=== PATIENT | male | born 1995 | race Caucasian/White ===

== ENCOUNTER 2022-08-16 08:12 | Inpatient (IN) | payer MEDICAID ==
[~2022-08-16] VITALS: Ht 182.9 cm; Wt 89.8 kg
[2022-08-16 09:30] LABS: BASOPHILS % 2.3 % (0.0-2.0); EOSINOPHILS % 2.7 % (0.0-5.0); HEMATOCRIT. 25.3 % (42.0-52.0); HEMOGLOBIN. 7.6 g/dL (14.0-18.0); LYMPHOCYTES % 27.6 % (20.0-50.0); MEAN CORPUSCULAR VOLUME 63.3 fL (80.0-94.0); MEAN PLATELET VOLUME 7.9 fl (7.4-10.4); MONOCYTES % 10.5 % (2.0-8.0); NEUTROPHILS % 56.9 % (40.0-76.0); PLATELET 374 x1000/uL (130-400); RED CELL DISTRIBUTION WIDTH 18.6 % (11.6-14.6)
[2022-08-16 09:38] LABS: CHLORIDE 108 mEq/L (98-107)
[2022-08-16 09:42] LABS: INR 1.1; PROTHROMBIN TIME 11.7 sec (9.6-11.0)
[2022-08-16] MEDS ORDERED: DIATR MEGLU/DIATRIZOATE SOLN 30ML ONE (10:14)
[2022-08-16] MEDS ORDERED: IOHEXOL-300 100 ML BOTTLE ONE (10:15)
[2022-08-16 10:35] LABS: PLATELET ESTIMATE NORMAL
[2022-08-16] MEDS ORDERED: ONDANSETRON HCL 4MG/2ML INJ IV PRN (12:15)
[2022-08-16] MEDS: DEXT 5%/0.45% NACL 1000ML 1,000 ML IV SCH ×2 (13:00→22:36)
[2022-08-16 16:40] LABS: TOTAL IRON BINDING CAPACITY 457 ug/dL (250-450)
[2022-08-16 17:29] LABS: VITAMIN B12 SERUM 703 pg/mL (211-911)
[2022-08-16 20:30] VITALS: BP 119/51
[2022-08-16 20:36] LABS: FERRITIN < 5 ng/mL (22-322)
[2022-08-16 21:00] VITALS: BP 129/68
[2022-08-16] MEDS: PANTOPRAZOLE SODIUM 40 MG/VIAL IV SCH (22:36)
[2022-08-17] VITALS (7 sets, daily range): BP systolic 99–129; BP diastolic 45–75
[2022-08-17 06:57] LABS: BASOPHILS % 1.2 % (0.0-2.0); EOSINOPHILS % 2.3 % (0.0-5.0); HEMATOCRIT. 25.1 % (42.0-52.0); HEMOGLOBIN. 7.5 g/dL (14.0-18.0); LYMPHOCYTES % 29.3 % (20.0-50.0); MEAN CORPUSCULAR HEMOGLOBIN 18.9 pg (28.0-32.0); MEAN CORPUSCULAR VOLUME 63.2 fL (80.0-94.0); MEAN PLATELET VOLUME 8.1 fl (7.4-10.4); MONOCYTES % 9.8 % (2.0-8.0); NEUTROPHILS % 57.4 % (40.0-76.0); PLATELET 371 x1000/uL (130-400); RED BLOOD CELL COUNT 3.97 mill/uL (4.7-6.1); RED CELL DISTRIBUTION WIDTH 18.6 % (11.6-14.6)
[2022-08-17] MEDS ORDERED: NALOXONE HCL 0.4MG/ML VIAL IV PRN (07:00)
[2022-08-17] MEDS ORDERED: MORPHINE SULFATE 2 MG/ML CPJ (NOT FOR IM USE) IV PRN (07:00)
[2022-08-17] MEDS ORDERED: ONDANSETRON HCL 4MG/2ML INJ IV PRN ×2 (07:45→09:45)
[2022-08-17 08:02] LABS: CHLORIDE 109 mEq/L (98-107)
[2022-08-17] MEDS ORDERED: BUPIVACAINE HCL/PF 0.5% (5MG/ML) 30ML ONE (08:52)
[2022-08-17] MEDS ORDERED: PANTOPRAZOLE SODIUM 40 MG/VIAL IV SCH (09:00)
[2022-08-17] MEDS: ENOXAPARIN 40MG/0.4ML SYR SUBCUT SCH (09:00)
[2022-08-17] MEDS: PANTOPRAZOLE SODIUM 40 MG/VIAL IV SCH ×2 (09:00→20:29)
[2022-08-17] MEDS ORDERED: FENTANYL CITRATE/PF 50MCG/ML 2ML VIAL ONE (09:01)
[2022-08-17] MEDS ORDERED: MIDAZOLAM HCL 2 MG/2 ML VIAL ONE (09:02)
[2022-08-17] MEDS ORDERED: ONDANSETRON HCL 4MG/2ML INJ ONE (09:06)
[2022-08-17] MEDS ORDERED: DEXAMETHASONE 4MG/ML 1ML VIAL ONE (09:06)
[2022-08-17] MEDS ORDERED: ROCURONIUM BROMIDE 10MG/ML VIAL 5ML IV ONE (09:06)
[2022-08-17] MEDS ORDERED: NEOSTIGMINE METHYLSULFATE 1MG/ML 10 ML VIAL ONE (09:06)
[2022-08-17] MEDS ORDERED: PROPOFOL 200MG/20ML VIAL IV ONE (09:06)
[2022-08-17] MEDS ORDERED: GLYCOPYRROLATE 0.2 MG/ML 2ML VIAL ONE ×2 (09:07)
[2022-08-17] MEDS ORDERED: HYDROMORPHONE HCL/PF 2MG/ML CPJ ONE ×2 (09:19→09:50)
[2022-08-17] MEDS ORDERED: LABETALOL 5MG/ML SYR 20 MG/4 ML SYRINGE IV PRN (09:45)
[2022-08-17] MEDS ORDERED: MEPERIDINE HCL/PF 25MG/ML CPJ IV PRN (09:45)
[2022-08-17] MEDS ORDERED: SKIN ADHESIVE 0.7 GM EA TOP ONE (09:54)
[2022-08-17] MEDS ORDERED: MEPERIDINE HCL/PF 25MG/ML CPJ IM PRN (10:15)
[2022-08-17] MEDS: HYDROMORPHONE HCL/PF 2MG/ML CPJ IV PRN ×2 (10:21→10:32)
[2022-08-17] MEDS ORDERED: BUPIVACAINE HCL 0.5% 125 ML in ON-Q PM012 DRUG DELIV DEVICE 1 EA IR ONE (10:30)
[2022-08-17] MEDS ORDERED: ONDANSETRON INJ IV PRN (10:45)
[2022-08-17] MEDS ORDERED: HYDROMORPHONE PCA 10MG/50ML IV PRN (10:45)
[2022-08-17] MEDS ORDERED: NALOXONE INJ IV PRN (10:45)
[2022-08-17] MEDS: DEXT 5%/0.45% NACL KCL 20MEQ/L 1,000 ML IV SCH ×2 (11:07→20:30)
[2022-08-18] VITALS: BP 103/55
[2022-08-18 04:00] VITALS: BP 105/55
[2022-08-18] MEDS: DEXT 5%/0.45% NACL KCL 20MEQ/L 1,000 ML IV SCH ×2 (05:10→16:19)
[2022-08-18] MEDS: IRON SUCROSE COMPLEX 100 MG/5 ML ML IV SCH ×2 (06:20→16:19)
[2022-08-18 07:14] LABS: BASOPHILS % 0.7 % (0.0-2.0); CHLORIDE 104 mEq/L (98-107); EOSINOPHILS % 0.5 % (0.0-5.0); HEMATOCRIT. 24.3 % (42.0-52.0); HEMOGLOBIN. 7.4 g/dL (14.0-18.0); LYMPHOCYTES % 12.9 % (20.0-50.0); MEAN CORPUSCULAR HEMOGLOBIN 19.3 pg (28.0-32.0); MEAN CORPUSCULAR VOLUME 63.2 fL (80.0-94.0); MEAN PLATELET VOLUME 8.5 fl (7.4-10.4); MONOCYTES % 10.2 % (2.0-8.0); NEUTROPHILS % 75.7 % (40.0-76.0); PLATELET 385 x1000/uL (130-400); RED BLOOD CELL COUNT 3.84 mill/uL (4.7-6.1); RED CELL DISTRIBUTION WIDTH 18.2 % (11.6-14.6)
[2022-08-18 08:00] VITALS: BP 120/59
[2022-08-18] MEDS: PANTOPRAZOLE SODIUM 40 MG/VIAL IV SCH ×2 (10:25→20:57)
[2022-08-18] MEDS: ENOXAPARIN 40MG/0.4ML SYR SUBCUT SCH (10:26)
[2022-08-18 11:49] VITALS: BP 108/54
[2022-08-18] MEDS: MORPHINE SULFATE 4 MG/ML CPJ (NOT FOR IM USE) IV PRN (14:40)
[2022-08-18 16:06] VITALS: BP 108/54
[2022-08-18 20:00] VITALS: BP 113/63
[2022-08-18] MEDS: MORPHINE SULFATE 2 MG/ML CPJ (NOT FOR IM USE) IV PRN (20:59)
[2022-08-19] VITALS (11 sets, daily range): BP systolic 110–125; BP diastolic 55–71
[2022-08-19] MEDS: DEXT 5%/0.45% NACL KCL 20MEQ/L 1,000 ML IV SCH ×2 (01:11→12:00)
[2022-08-19 06:22] LABS: BASOPHILS % 0.6 % (0.0-2.0); EOSINOPHILS % 1.3 % (0.0-5.0); HEMATOCRIT. 23.3 % (42.0-52.0); LYMPHOCYTES % 14.8 % (20.0-50.0); MEAN CORPUSCULAR HEMOGLOBIN 18.7 pg (28.0-32.0); MEAN CORPUSCULAR VOLUME 62.3 fL (80.0-94.0); MEAN PLATELET VOLUME 8.5 fl (7.4-10.4); MONOCYTES % 11.4 % (2.0-8.0); NEUTROPHILS % 71.9 % (40.0-76.0); PLATELET 369 x1000/uL (130-400); RED BLOOD CELL COUNT 3.74 mill/uL (4.7-6.1)
[2022-08-19 06:27] LABS: CHLORIDE 106 mEq/L (98-107)
[2022-08-19] MEDS: PANTOPRAZOLE SODIUM 40 MG/VIAL IV SCH ×2 (10:27→21:42)
[2022-08-19] MEDS: IRON SUCROSE COMPLEX 100 MG/5 ML ML IV SCH (16:00)
[2022-08-19 21:07] LABS: HEMATOCRIT 28.7 % (42.0-52.0); HEMOGLOBIN 8.6 g/dL (14.0-18.0)
[2022-08-19] MEDS: MORPHINE SULFATE 2 MG/ML CPJ (NOT FOR IM USE) IV PRN (21:44)
[2022-08-19] MEDS: MORPHINE SULFATE 4 MG/ML CPJ (NOT FOR IM USE) IV PRN (22:10)
[2022-08-20] VITALS: BP 136/79
[2022-08-20 04:00] VITALS: BP 106/57
[2022-08-20] MEDS: DEXT 5%/0.45% NACL KCL 20MEQ/L 1,000 ML IV SCH ×3 (04:08→18:53)
[2022-08-20 06:40] LABS: EOSINOPHILS % 2.9 % (0.0-5.0); HEMOGLOBIN. 8.1 g/dL (14.0-18.0); LYMPHOCYTES % 18.6 % (20.0-50.0); MEAN CORPUSCULAR HEMOGLOBIN 19.9 pg (28.0-32.0); MEAN CORPUSCULAR VOLUME 64.4 fL (80.0-94.0); MEAN PLATELET VOLUME 8.1 fl (7.4-10.4); MONOCYTES % 11.7 % (2.0-8.0); NEUTROPHILS % 65.8 % (40.0-76.0); PLATELET 373 x1000/uL (130-400); RED BLOOD CELL COUNT 4.04 mill/uL (4.7-6.1); RED CELL DISTRIBUTION WIDTH 19.7 % (11.6-14.6)
[2022-08-20 07:15] LABS: CHLORIDE 107 mEq/L (98-107)
[2022-08-20] MEDS: PANTOPRAZOLE SODIUM 40 MG/VIAL IV SCH ×2 (08:49→21:37)
[2022-08-20 16:00] VITALS: BP 114/60
[2022-08-20 18:07] LABS: HEMOGLOBIN 9.3 g/dL (14.0-18.0)
[2022-08-20 20:00] VITALS: BP 69/100
[2022-08-21] VITALS: BP 117/60
[2022-08-21 01:51] LABS: HEMATOCRIT 26.6 % (42.0-52.0); HEMOGLOBIN 8.2 g/dL (14.0-18.0)
[2022-08-21 04:00] VITALS: BP 104/64
[2022-08-21 06:47] LABS: BASOPHILS % 1.2 % (0.0-2.0); EOSINOPHILS % 3.8 % (0.0-5.0); HEMATOCRIT. 26.5 % (42.0-52.0); HEMOGLOBIN. 8.2 g/dL (14.0-18.0); LYMPHOCYTES % 15.6 % (20.0-50.0); MEAN CORPUSCULAR VOLUME 64.4 fL (80.0-94.0); MEAN PLATELET VOLUME 8.1 fl (7.4-10.4); MONOCYTES % 11.1 % (2.0-8.0); NEUTROPHILS % 68.3 % (40.0-76.0); PLATELET 369 x1000/uL (130-400); RED BLOOD CELL COUNT 4.11 mill/uL (4.7-6.1); RED CELL DISTRIBUTION WIDTH 20.1 % (11.6-14.6)
[2022-08-21 07:36] LABS: CHLORIDE 107 mEq/L (98-107)
[2022-08-21 08:00] VITALS: BP 99/55
[2022-08-21] MEDS: PANTOPRAZOLE SODIUM 40 MG/VIAL IV SCH ×2 (08:40→20:55)
[2022-08-21 11:54] VITALS: BP 111/69
[2022-08-21] MEDS: DEXT 5%/0.45% NACL KCL 20MEQ/L 1,000 ML IV SCH ×2 (13:22→23:30)
[2022-08-21 15:44] LABS: HEMATOCRIT 30.3 % (42.0-52.0); HEMOGLOBIN 9.1 g/dL (14.0-18.0)
[2022-08-21 16:00] VITALS: BP 118/62
[2022-08-21 20:00] VITALS: BP 105/56
[2022-08-22] VITALS: BP 111/56
[2022-08-22 00:51] LABS: PLATELET ESTIMATE NORMAL
[2022-08-22 08:00] VITALS: BP 102/51
[2022-08-22 08:10] LABS: BASOPHILS % 1.2 % (0.0-2.0); EOSINOPHILS % 3.5 % (0.0-5.0); HEMATOCRIT. 28.5 % (42.0-52.0); HEMOGLOBIN. 8.7 g/dL (14.0-18.0); LYMPHOCYTES % 17.2 % (20.0-50.0); MEAN CORPUSCULAR VOLUME 65.3 fL (80.0-94.0); MEAN PLATELET VOLUME 8.1 fl (7.4-10.4); MONOCYTES % 11.6 % (2.0-8.0); NEUTROPHILS % 66.5 % (40.0-76.0); PLATELET 376 x1000/uL (130-400); RED BLOOD CELL COUNT 4.36 mill/uL (4.7-6.1); RED CELL DISTRIBUTION WIDTH 20.3 % (11.6-14.6)
[2022-08-22 08:17] LABS: CHLORIDE 109 mEq/L (98-107)
[2022-08-22] MEDS: PANTOPRAZOLE SODIUM 40 MG/VIAL IV SCH (08:44)
[2022-08-22 11:32] VITALS: BP 117/85
[2022-08-22 12:00] VITALS: BP 117/85
[2022-08-22 12:01] VITALS: BP 117/85
== END 2022-08-22 13:37 | disposition home or self-care (01) | DRG 230 ==
LOC: ER 08:12 → 6EST 11:41 → EDBEDREQ 11:48 → EDBEDREQTM 11:48 → EDBEDREQSVC 18:48 → 6EST 08-17 15:00
PROVIDERS: ADMIT Internal Medicine; ATTEND Internal Medicine
PROC: 0DBA0ZZ Excision of Jejunum, Open Approach (ICD-10-PCS; principal; 2022-08-17)
PROC: 30233N1 Transfusion of Nonautologous Red Blood Cells into Peripheral Vein, Percutaneous Approach (ICD-10-PCS; 2022-08-19)
DX: C17.1 Malignant neoplasm of jejunum (principal); K28.4 Chronic or unspecified gastrojejunal ulcer with hemorrhage; R65.10 Systemic inflammatory response syndrome (SIRS) of non-infectious origin without acute organ dysfunction; D50.0 Iron deficiency anemia secondary to blood loss (chronic); D63.0 Anemia in neoplastic disease
CPT/HCPCS: 36415; 74177; 80048; 80053; 82607; 82728; 82746; 83540; 83550; 85014; 85018; 85025; 85044; 86850; 86900; 86920; 87426; 88307; 93005; 99285; C9113; C9803; J1100; J1170; J1650; J2175; J2250; J2270; J2405; J2704; J2710; J3010; J3490; P9016; Q9963; Q9967